=== PATIENT | male | born 1935 | race Caucasian/White ===

== ENCOUNTER → 2016-11-25 | Outpatient (CLI) | payer MEDICARE, OTHER | END | disposition home or self-care (01) | LOC: PCVCCLINIC 10:40 | PROVIDERS: ATTEND Internal Medicine | DX: I45.10 Unspecified right bundle-branch block (principal); I25.10 Atherosclerotic heart disease of native coronary artery without angina pectoris; E78.2 Mixed hyperlipidemia; I65.23 Occlusion and stenosis of bilateral carotid arteries; E83.110 Hereditary hemochromatosis; I12.9 Hypertensive chronic kidney disease with stage 1 through stage 4 chronic kidney disease, or unspecified chronic kidney disease; N18.2 Chronic kidney disease, stage 2 (mild); Z79.82 Long term (current) use of aspirin; Z90.49 Acquired absence of other specified parts of digestive tract; Z79.899 Other long term (current) drug therapy; Z88.8 Allergy status to other drugs, medicaments and biological substances | CPT/HCPCS: 80061; 93005; G0463 ==

== ENCOUNTER → 2017-04-07 | Outpatient (CLI) | payer MEDICARE, OTHER ==
--- NOTE | 2017-04-07 11:09 | PCVCIMAG ---
APPROVED REPORT Study performed: 04/07/2017 11:03:16 EXAM: Comprehensive 2D, Doppler, and color-flow Echocardiogram Patient Location: Echo lab Status: routine BSA: 1.80 HR: 53 bpmBP: 116/66 mmHg Rhythm: Bradycardia Other Information Study Quality: Adequate Risk Factors: Cardiac Risk Factors: HTN Indications CAD Assess Pulmonary pressures and LV function 2D Dimensions LVEF(%): 46.72 (>50%) IVSd: 13.73 (7-11mm) LVDd: 46.06 mm PWd: 13.63 (7-11mm) LVDs: 35.32 (25-40mm) Left Atrium: 38.36 (27-40mm) Aortic Root: 32.77 mm LV Single Plane 4CH: 62.71 % LV Single Plane 2CH: 64.02 %Nam's LVEF: 63.37 % Biplane EF: 64.7 % Volumes Left Atrial Volume (Systole) Single Plane 4CH: 62.01 mLSingle Plane 2CH: 57.26 mL LA ESV Index: 38.00 mL/m2 Aortic Valve AoV Peak Travon.: 1.31 m/s AO Peak Gr.: 6.82 mmHgLVOT Max P.21 mmHg LVOT Max V: 0.90 m/s AI Vmax: 4.16 m/s AI [place]: 2.45 m/s2 AI PHT: 493.53 ms Mitral Valve E/A Ratio: 1.5 MV Decel. Time: 355.74 ms MV E Max Travon.: 0.67 m/s MV A Travon.: 0.44 m/s MV PHT: 103.16 ms IVRT: 107.27 ms Pulmonary Valve PV Peak Travon.: 0.77 m/sPV Peak Gr.: 2.36 mmHg Pulmonary Vein P Vein S: 0.47 m/sP Vein A: 0.28 m/s P Vein D: 0.73 m/sP Vein A Dur.: 124.6 msec P Vein S/D Ratio: 0.64 Tricuspid Valve TR Peak Travon.: 2.41 m/s TR Peak Gr.: 23.25 mmHg Left Ventricle The left ventricle is normal size. There is normal LV segmental wall motion. Mild concentric left ventricular hypertrophy. Left ventricular systolic function is normal. The left ventricular ejection fraction is within the normal range. LVEF is 60-65%. Grade II diastolic dysfunction Right Ventricle The right ventricle is normal size. The right ventricular systolic function is normal. Atria Left atrium is mildly dilated. The right atrium size is normal. Aortic Valve The aortic valve is minimally sclerotic. Mild aortic regurgitation. There is no aortic valvular stenosis. Mitral Valve The mitral valve is normal in structure. Moderate mitral regurgitation. No evidence of mitral valve stenosis. Tricuspid Valve The tricuspid valve is normal in structure. Mild tricuspid regurgitation with PAP of 30 mmHg. Pulmonic Valve The pulmonary valve is normal in structure. There is no pulmonic valvular regurgitation. Great Vessels The aortic root is normal in size. IVC is normal in size and collapses with >50% inspiration Pericardium There is no pericardial effusion. <Conclusion> Left ventricular systolic function is normal. Mild LVH There is normal LV segmental wall motion. LVEF 60-65%. Left atrium is mildly dilated. The aortic valve is minimally sclerotic. Mild aortic regurgitation, no stenosis. The mitral valve is normal in structure. Moderate mitral regurgitation. Pulmonary artery pressure of 30mmHg There is no pericardial effusion.
== END | disposition home or self-care (01) ==
LOC: PCVCIMAG 10:01
PROVIDERS: ATTEND Internal Medicine
DX: I08.3 Combined rheumatic disorders of mitral, aortic and tricuspid valves (principal); I27.20 Pulmonary hypertension, unspecified; R00.1 Bradycardia, unspecified
CPT/HCPCS: 93306

== ENCOUNTER → 2017-11-24 | Outpatient (CLI) | payer MEDICARE, OTHER ==
[~2017-11-24] MED LIST: REGADENOSON 0.4 MG/5 ML DISP.SYRIN. IV
== END | disposition home or self-care (01) ==
LOC: PCVCIMAG 09:04
DX: I25.10 Atherosclerotic heart disease of native coronary artery without angina pectoris (principal); E78.5 Hyperlipidemia, unspecified; I65.23 Occlusion and stenosis of bilateral carotid arteries; N18.2 Chronic kidney disease, stage 2 (mild); E83.110 Hereditary hemochromatosis; R06.00 Dyspnea, unspecified; Z79.82 Long term (current) use of aspirin; Z79.899 Other long term (current) drug therapy
CPT/HCPCS: 78452; 93005; 93017; A9500; G0463; J2785

== ENCOUNTER → 2018-06-08 | Outpatient (CLI) | payer MEDICARE, OTHER | END | disposition home or self-care (01) | LOC: PCVCCLINIC 11:06 | PROVIDERS: ATTEND Internal Medicine | DX: I25.10 Atherosclerotic heart disease of native coronary artery without angina pectoris (principal); E78.5 Hyperlipidemia, unspecified; I65.23 Occlusion and stenosis of bilateral carotid arteries; I12.9 Hypertensive chronic kidney disease with stage 1 through stage 4 chronic kidney disease, or unspecified chronic kidney disease; N18.2 Chronic kidney disease, stage 2 (mild); E83.110 Hereditary hemochromatosis | CPT/HCPCS: 36415; 80061; 93005; G0463 ==